=== PATIENT | male | born 1975 | race Hispanic/Latino ===

== ENCOUNTER 2016-09-04 17:41 | Emergency (ER) ==
[2016-09-04] MEDS ORDERED: XYLOCAINE-MPF 1% INJ ONE ×2 (19:49→20:08)
--- NOTE | 2016-09-04 19:56 | PROVIDER DOCUMENTATION ---
HPI-Rash/Wound/ReCheck <Charleen SofiaAaliyah - Last Filed: 09/04/16 20:09> - General Source: patient - History of Present Illness-Dermatology Location: reports: hands Quality: reports: painful Severity: reports: mild Onset/Duration: reports: just prior to arrival Timing: reports: still present Context/Associated Symptoms: reports: laceration Identifiable cause?: Yes (saw) Locality of Occurance: Work Similar Symptoms Previously?: No Recently seen or treated by another doctor?: No <Velma Coronado - Last Filed: 09/05/16 01:26> - History of Present Illness-Dermatology Context/Associated Symptoms: reports: denies symptoms Exposure: reports: unknown cause Similar Symptoms Previously?: No Recently seen or treated by another doctor?: No <Emilee Hathaway - Last Filed: 09/05/16 07:12> - General Chief Complaint: Laceration[s] Stated Complaint: FINGER LAC Time Seen by Provider: 09/04/16 19:07 Allergies/Adverse Reactions: Allergies Allergy/AdvReac Type Severity Reaction Status Date / Time No Known Allergies Allergy Verified 08/14/16 11:11 Home Medications: Metformin [Glucophage] 500 mg 08/14/16 - History of Present Illness-Dermatology Nature of Presenting Problem: 40 year old M presents to the ED with a cc of a laceration to left 2nd and 4th digits. Pt states that he accidentally cut them while at work with a saw. ( Velma Coronado) Review of Systems - Adult - REVIEW OF SYSTEMS - ADULT Constitutional: denies: chills, fever Eyes: reports: no symptoms reported Ears, Nose, Mouth & Throat: denies: ear pain, throat pain Cardiovascular: denies: chest pain, palpitations Respiratory: denies: cough, shortness of breath Gastrointestinal: denies: nausea, vomiting Genitourinary: reports: no symptoms reported Musculoskeletal: denies: muscle aches, muscle weakness Integumentary: reports: other (laceration). denies: skin sores/ulcer, skin thickening Neurological: reports: no symptoms reported Psychiatric: reports: no symptoms reported Endocrine: reports: no symptoms reported Hematologic/Lymphatic: reports: no symptoms reported Allergic/Immunologic: reports: no symptoms reported All Other Systems: Reviewed and Negative <Velma Coronado - Last Filed: 09/05/16 01:26> Past History - Adult - PAST MEDICAL HISTORY-ADULT Review of Records: reports: Nursing Assessment Review, Medications Reviewed Major Childhood Illnesses: reports: denies history Endocrine/Immune: reports: Diabetes - PRIOR SURGERIES/PROCEDURES Surgical/Procedure History: reports: none - IMMUNIZATION STATUS Childhood Immunizations: See Nurse Assessment Flu Vaccine: See Nurse Assessment - SOCIAL HISTORY Smoking: non-smoker Substance Use: none/never Alcohol Use Frequency: never <Velma Coronado - Last Filed: 09/05/16 01:26> Physical Exam-General - SKIN Integumentary: laceration(s) (2cm laceration to left 2nd digit, distal aspect, involving the nail 1cm laceration to left 4th digit, distal aspect, involving the nail) <Charleen Sofia - Last Filed: 09/04/16 20:09> - PHYSICAL EXAM-ADULT Initial Vital Signs Reviewed: Yes - CONSTITUTIONAL General Appearance: appears well, alert, no apparent distress - EYES Eyes: PERRL/EOMI, pink conjunctivae - HEAD, EARS, NOSE, MOUTH & THROAT HENMT: normocephalic/atraumatic, moist mucous membranes - NECK Neck: non-tender, full range of motion, supple, normal inspection - RESPIRATORY Respiratory: chest non-tender, lungs clear, normal breath sounds, no pleuratic chest pain, no respiratory distress, no accessory muscle use - CARDIOVASCULAR Cardiovascular: normal peripheral pulses, regular rate, rhythm, no edema, no gallop - GASTROINTESTINAL (ABDOMEN) Abdominal Exam: normal bowel sounds, non tender, soft, no organomegaly, no pulsatile mass - MUSCULOSKELETAL Back Exam: normal inspection, no CVA tenderness Extremity: normal range of motion, non-tender, normal gait, normal inspection - SKIN Integumentary: normal color - NEUROLOGIC Neurologic: grossly normal, no motor/sensory deficits - PSYCHIATRIC Psych/Mental Status: normal mood/affect, normal thought content, normal thought process, oriented x 3 <Emiele Hathaway X - Last Filed: 09/05/16 07:12> Progress <Charleen Sofia - Last Filed: 09/04/16 20:09> - XRAY 1 XRAY: Left XRAY Study: Hand (fingers) Impression: Normal XRAY Interpretation: no fx noted: Dave Sofia <Velma Coronado - Last Filed: 09/05/16 01:26> <Matt Hathawayjessebrigitte X - Last Filed: 09/05/16 07:12> - PLAN OF CARE/RESULTS Progress/Plan/Lab Results: Vital Signs Temp Pulse Resp BP Pulse Ox 09/04/16 18:25 98 F 61 18 145/82 99 09/04/16 18:21 18 No Known Allergies Allergy (Verified 08/14/16 11:11) Metformin [Glucophage] 500 mg 08/14/16 Ibuprofen 800 mg PO BID #20 tablet 09/04/16 Sulfamethoxazole/Trimethoprim [Bactrim Ds Tablet] 1 each PO BID #20 tablet 09/04 Orders Category Date Time Status FINGER(S)-LEFT [RAD] Stat Exams 09/04/16 19:27 Taken CefTRIAXONE [Rocephin] Med 09/04/16 20:08 Discontinued 1 gm IM NOW ONE Lidocaine 1% Pf [Xylocaine-Mpf 1%] Med 09/04/16 19:49 Discontinued 10 ml INJ NOW ONE Lidocaine 1% Pf [Xylocaine-Mpf 1%] Med 09/04/16 20:08 Discontinued 5 ml INJ NOW ONE (Charleen Sofia) Procedures - LACERATION/WOUND REPAIR/FB Left Finger Wound Location: Other: left 2nd digit Wound Length: 2cm Wound's Depth, Shape: superficial, irregular, nail-avulsed Wound Explored/Foreign Body: clean, no foreign body found Irrigated with Saline?: Yes Prepped with: Lucians Anesthetic: 1%, Lidocaine/Xylocaine Volume of Anesthetic (ml's): 3 Wound Debrided: extensive Wound Repaired with: Sutures Suture Size/Type: 4.0, Non-Absorbable Number of Sutures: 3 Layer Closure?: No Sterile Dressing Applied?: Yes Splint Applied?: No Sling Applied?: No Post Procedure Neurovascular Exam: Intact, No Tendon Injury Procedure Comment: pt tolerated well Left Hand Wound Location: Other: left 4th digit Wound Length: 0.5cm Wound's Depth, Shape: superficial, irregular Wound Explored/Foreign Body: clean Irrigated with Saline?: Yes Prepped with: Robiclens Anesthetic: 1%, Lidocaine/Xylocaine Volume of Anesthetic (ml's): 2 Wound Debrided: moderate Wound Repaired with: Sutures Suture Size/Type: 4.0, Non-Absorbable Number of Sutures: 2 Layer Closure?: No Post Procedure Neurovascular Exam: Intact, No Tendon Injury Procedure Comment: pt tolerated well <Charleen Sofia - Last Filed: 09/04/16 20:09> Departure - Departure Time of Disposition Order: 20:11 Certified Medical Emergency: Emergent <Charleen Sofia - Last Filed: 09/04/16 20:09> <Velma Coronado - Last Filed: 09/05/16 01:26> - Departure Certified Medical Emergency: Emergent <Emilee Hathaway - Last Filed: 09/05/16 07:12> - Departure DIAGNOSIS: Finger laceration Qualifiers: Encounter type: initial encounter Qualified Code(s): S61.219A - Laceration without foreign body of unspecified finger without damage to nail, initial encounter Disposition: HOME 01 Condition: Good Additional Instructions: Keep wounds clean and dry. Have sutures removed in 10 days. ED Follow Up Instructions: You have been treated by a care provider in the Emergency Department. These instructions are being provided to you so you can have an understanding of how to care for yourself upon discharge. Upon discharge from the Emergency Department, you are responsible for making arrangements for follow-up care by a physician of your choice. Take all prescribed medications as directed. Return to the Emergency Department immediately for any new or worsening symptoms. You may call the Physician Referral phone number at [phone] to obtain a list of Physicians who are taking new patients. Prescriptions: Sulfamethoxazole/Trimethoprim [Bactrim Ds Tablet] 1 each PO BID #20 tablet Ibuprofen 800 mg PO BID #20 tablet Referrals: Stacie Escobar MD [STAFF PHYSICIAN] - None,PCP [Primary Care Provider] - Forms: Return to School/Parent Work Instructions: Ibuprofen tablets and capsules, Laceration Care, Adult, Sulfamethoxazole; Trimethoprim, SMX-TMP tablets Attestation - Physician/ Mid-level Attestation Patient care was provided by Mid-level provider (AIR QUALITY TECHNICIAN/PA):: Yes Mid-level provider:: Charleen Sofia Mid-level documentation review:: The Mid-level provider documentation, treatment plan and medical decision making was reviewed by the physician who agrees with all treatment and medical decision making by the MLP. <Charleen Sofia - Last Filed: 09/04/16 20:09> - Scribe Verification/Attestation Scribe:: Velma Coronado Acting as Scribe for:: Charleen Sofia Scribe documention review:: This chart was documented by a scribe and accurately reflects the service the provider performed and the decisions made by the provider. <Velma Coronado - Last Filed: 09/05/16 01:26> Physician Attestation - Physician Attestation I, the provider, attest to the following statement:: Charleen Sofia Physician documentation Attestation:: This documentation recorded by the scribe accurately reflects the service I personally performed and the decisions made by me. <Velma Coronado - Last Filed: 09/05/16 01:26>
[2016-09-04] MEDS ORDERED: ROCEPHIN IM ONE (20:08)
[2016-09-04 20:49] VITALS: BP 117/83
--- NOTE | 2016-09-05 09:01 | Diag Imaging Result Document ---
PROCEDURE NAME: FINGER(S)-LEFT - 09/04/2016 LEFT FINGER, THREE VIEWS: INDICATION: Cut second digit with saw. FINDINGS: There is soft tissue defect involving the tip of the index finger. No fracture or dislocation is identified. IMPRESSION: Soft tissue abnormality. No bony abnormality.
== END 2016-09-04 20:49 | disposition home or self-care (01) ==
LOC: P.ED 17:41
DX: S61.211A Laceration without foreign body of left index finger without damage to nail, initial encounter (principal); S61.215A Laceration without foreign body of left ring finger without damage to nail, initial encounter; E11.9 Type 2 diabetes mellitus without complications; W29.3XXA Contact with powered garden and outdoor hand tools and machinery, initial encounter; Z79.899 Other long term (current) drug therapy
CPT/HCPCS: 73140; 96372; J0696